=== PATIENT | male | born 1950 | race Caucasian/White ===

== ENCOUNTER 2019-11-21 17:12 | Emergency (ER) | payer OTHER ==
[~2019-11-21] VITALS: Ht 167.6 cm; Wt 83.9 kg
--- NOTE | 2019-11-21 17:12 | NUR ---
PT BIBA BLS TO ER BED 11
[2019-11-21 17:18] VITALS: BP 137/89
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
--- NOTE | 2019-11-21 17:38 | NUR ---
X-RAY TECH AT BEDSIDE PERFORMING ORDERED TEST
[2019-11-21 17:40] VITALS: BP 137/89
--- NOTE | 2019-11-21 17:41 | NUR ---
Note felisaone in EDM - 11/21/19 at 1820 by [facility] Patient discharged with v/s stable. Written and verbal after care instructions given and explained. Patient alert, oriented and verbalized understanding of instructions. Ambulatory with steady gait. All questions addressed prior to discharge. ID band removed. Patient advised to follow up with PMD. Rx of MINERAL OIL, TRAMADOL HYDROCHLORIDE, MOTRIN given. Patient educated on indication of medication including possible reaction and side effects. Opportunity to ask questions provided and answered.
[2019-11-21] MEDS ORDERED: NEOMYCIN/POLYMYXIN/BACITRACIN 0.9 GM/1 PKT TP ONE ×2 (17:44→17:45)
[2019-11-21] MEDS ORDERED: KETOROLAC 30 MG/ML VIAL IM ONE (17:45)
== END 2019-11-21 18:20 | disposition home or self-care (01) ==
LOC: MED 17:12
DX: S60.222A Contusion of left hand, initial encounter (principal); S80.02XA Contusion of left knee, initial encounter; S80.01XA Contusion of right knee, initial encounter; W22.8XXA Striking against or struck by other objects, initial encounter; E11.9 Type 2 diabetes mellitus without complications; Y93.89 Activity, other specified; Y92.89 Other specified places as the place of occurrence of the external cause; Y99.8 Other external cause status
CPT/HCPCS: 73110; 73562; 90471; 90715; 96372; 99283; J1885; Q0092